=== PATIENT | male | born 1990 | race Caucasian/White ===

== ENCOUNTER 2017-11-30 11:02 | Emergency (ER) | payer BC, OTHER ==
[2017-11-30] MEDS ORDERED: NA CHLORIDE 0.9% 1,000 ML ONE (11:39)
[2017-11-30 11:50] LABS: Absolute Monocytes 0.6 K/uL (0.1-1.3); Absolute Neutrophil 6.2 K/uL (1.8-8.0); Basophils % 0.3 % (0-1.3); Eosinophils % 0.8 % (0-4.4); Hematocrit 48.8 % (39.6-49.0); MCH 29.7 pg (27.0-35.0); MCV 88.9 fL (80-100); MPV 8.5 fL (7.6-11.3); RBC Red Blood Cell Count 5.49 M/uL (4.33-5.43)
[2017-11-30 12:00] LABS: Protime INR 1.04
[2017-11-30 12:24] LABS: ALT/SGPT 32 U/L (12-78); AST/SGOT 17 U/L (15-37); Alkaline Phosphatase 81 U/L (45-117); Amylase Level 60 U/L (25-115); BUN Blood Urea Nitrogen 7 mg/dL (7-18); Bicarbonate 27 mmol/L (21-32); Bilirubin Direct 0.2 mg/dL (0-0.2); Bilirubin Total 0.4 mg/dL (0.2-1.0); Glucose Level 99 mg/dL (74-106); Lipase 127 U/L (73-393); Potassium 3.7 mmol/L (3.5-5.1); Sodium Level 140 mmol/L (136-145)
[2017-11-30] MEDS ORDERED: ONDANSETRON 4 MG/2 ML VIAL ONE (12:31)
[2017-11-30 12:58] LABS: Urine Bacteria <20 /HPF (NONE SEEN); Urine Culture Reflex Order NOT NEEDED; Urine RBC <5 /HPF (NONE SEEN)
[2017-11-30 13:14] LABS: Urine Blood NEGATIVE (NEG); Urine Glucose NEGATIVE (NEG); Urine Protein 1+ (NEG)
--- NOTE | 2017-11-30 13:47 | RAD REPORT ---
EXAM DESCRIPTION: CT - Abdomen Pelvis W Contrast - 11/30/2017 1:26 pm CLINICAL HISTORY: Abdominal pain, diarrhea, suspected rectal bleeding COMPARISON: None. TECHNIQUE: Biphasic, helical CT imaging of the abdomen and pelvis was performed following 100 ml non -ionic IV contrast. Oral contrast was given. All CT scans are performed using dose optimization technique as appropriate and may include automated exposure control or mA/KV adjustment according to patient size. FINDINGS: No suspicious findings in the lung bases. The liver, spleen, and pancreas show no suspicious findings. Gallbladder and biliary tree are also wi thout suspicious finding. Symmetric renal function is seen with no hydronephrosis or suspicious renal mass. No gastric dilatation or gastric wall thickening. No acute small bowel finding. The appendix is jeni l. Patient shows significant circumferential wall thickening of the colon from the hepatic flexure throu gh the distal descending colon. Malone of the cecum and ascending colon are mildly prominent. Rectum a nd sigmoid portions of the colon show no suspicious findings. A few small mesenteric lymph nodes are present. No free air, free fluid or pneumatosis. No significant stranding around the involved portion of col on. No mass or bulky lymphadenopathy. The urinary bladder is without significant finding. No adrenal abnormality. No suspicious bony findings. IMPRESSION: Moderately prominent colitis findings extending from the hepatic flexure through the dis neha descending colon. There is mild involvement of the cecum and ascending colon. No obstruction, free air or surgically emergent finding. Multiple small mesenteric lymph nodes are present.
[2017-11-30] MEDS ORDERED: DICYCLOMINE HCL 10 MG CAP ONE (14:08)
[2017-11-30] MEDS ORDERED: METRONIDAZOLE 500mg IVPB 500 MG/100 ML BAG IV ONE (14:09)
[2017-11-30] MEDS ORDERED: CIPROFLOXACIN 400mg IV 400 MG/200 ML BAG IV ONE (14:09)
--- NOTE | 2017-11-30 14:55 | EDPHYS ---
Physician Documentation [facility] Name: Tulio Pittman Age: 27 yrs Sex: Male : 1990 Arrival Date: 11/30/2017 Time: 11:07 Bed 15 Private MD: Felipe Weaver T ED Physician Santosh Sharpe HPI: 11/30 11:20 This 27 yrs old Male presents to ER via Ambulatory with complaints of Bloody cp Stools. 11:20 The patient presents to the emergency department with nausea, that is mild, diarrhea, cp that is continuous. Onset: The symptoms/episode began/occurred 2 day(s) ago. Possible causes: travel, returned from [facility] yesterday. 11:20 Associated signs and symptoms: Pertinent positives: abdominal pain, GI bleeding, cp noticed blood in stool last bowel movement, Pertinent negatives: constipation, fever. Severity of symptoms: in the emergency department the symptoms are unchanged despite home interventions. Historical: - Allergies: 11:13 No Known Allergies; aj - Home Meds: 11:13 None [Active]; aj - PMHx: 11:13 None; aj - PSHx: 11:13 None; aj - Immunization history:: Adult Immunizations up to date. - Social history:: Smoking status: Patient/guardian denies using tobacco. - Ebola Screening: : Patient negative for fever greater than or equal to 101.5 degrees Fahrenheit, and additional compatible Ebola Virus Disease symptoms Patient denies exposure to infectious person Patient denies travel to an Ebola-affected area in the 21 days before illness onset No symptoms or risks identified at this time. ROS: 11:25 Constitutional: Negative for body aches, chills, fever, poor PO intake. cp 11:25 Eyes: Negative for injury, pain, redness, and discharge. cp 11:25 ENT: Negative for drainage from ear(s), ear pain, sore throat, difficulty swallowing, difficulty handling secretions. 11:25 Cardiovascular: Negative for chest pain. 11:25 Respiratory: Negative for cough, shortness of breath, wheezing. 11:25 Abdomen/GI: Positive for abdominal pain, nausea, diarrhea, anorexia, rectal bleeding, Negative for vomiting, constipation. 11:25 Back: Negative for pain at rest, pain with movement. 11:25 Skin: Negative for cellulitis, rash. 11:25 Neuro: Negative for altered mental status, headache, syncope, near syncope, weakness. 11:25 All other systems are negative. Exam: 11:30 Constitutional: The patient appears in no acute distress, alert, awake, non-toxic, well cp developed, well nourished. 11:30 Head/Face: Normocephalic, atraumatic. cp 11:30 Eyes: Periorbital structures: appear normal, Conjunctiva: normal, no exudate, no injection, Sclera: no appreciated abnormality, Lids and lashes: appear normal, bilaterally. 11:30 ENT: External ear(s): are unremarkable, Nose: is normal, Mouth: Lips: moist, Oral mucosa: moist, Posterior pharynx: is normal, airway is patent, no erythema, no exudate. 11:30 Neck: ROM/movement: is normal, is supple, without pain, no range of motions limitations. 11:30 Chest/axilla: Inspection: normal, Palpation: is normal, no crepitus, no tenderness. 11:30 Cardiovascular: Rate: normal, Rhythm: regular. 11:30 Respiratory: the patient does not display signs of respiratory distress, Respirations: normal, no use of accessory muscles, no retractions, no splinting, no tachypnea, labored breathing, is not present, Breath sounds: are clear throughout, no decreased breath sounds, no stridor, no wheezing. 11:30 Abdomen/GI: Inspection: abdomen appears normal, Bowel sounds: active, all quadrants, Palpation: soft, in all quadrants, moderate abdominal tenderness, in all quadrants, rebound tenderness, is not appreciated, voluntary guarding, is elicited in all quadrants, mild, involuntary guarding, is not appreciated. 11:30 Back: CVA tenderness, is absent. 11:30 Skin: cellulitis, is not appreciated, no rash present. 11:30 Neuro: Orientation: to person, place \T\ time. Mentation: lucid, able to follow commands, Cerebellar function: is grossly normal, Motor: moves all fours, strength is normal, Sensation: no obvious gross deficits. Vital Signs: 11:13 BP 145 / 89; Pulse 84; Resp 18; Temp 98.6; Pulse Ox 98% on R/A; Weight 72.12 kg; Height aj 5 ft. 6 in. (167.64 cm); 11:19 BP 131 / 75 LA Supine (auto/reg); Pulse 52 MON; em1 11:22 BP 128 / 87 LA Sitting (auto/reg); Pulse 69 MON; em1 11:25 BP 126 / 96 LA Standing (auto/reg); Pulse 91 MON; em1 12:00 BP 129 / 80; Pulse 66; Resp 20; Pulse Ox 97% ; Pain 5/10; jb4 13:07 BP 124 / 72; Pulse 65; Resp 18; Temp 98.6(O); Pulse Ox 97% on R/A; Pain 0/10; jb4 14:30 BP 122 / 72; Pulse 56; Resp 16; Pulse Ox 96% on R/A; Pain 1/10; hj 11:13 Body Mass Index 25.66 (72.12 kg, 167.64 cm) aj MDM: 11:16 Patient medically screened. [place] 12:00 Differential diagnosis: gastritis, diverticulitis, viral gastroenteritis, cp gastroenteritis, colitis. 14:52 Data reviewed: vital signs, nurses notes, lab test result(s), radiologic studies, CT cp scan. 14:52 Response to treatment: the patient's symptoms have mildly improved after treatment, and cp as a result, I will discharge patient. 11/30 11:22 Order name: Amylase, Serum; Complete Time: 12:49 cp 11/30 11:22 Order name: Basic Metabolic Panel; Complete Time: 12:49 cp 11/30 13:04 Interpretation: Normal except: CL 108. cp 11/30 11:22 Order name: CBC with Diff; Complete Time: 12:49 cp 11/30 13:05 Interpretation: Normal except: RBC 5.49; LYM% 13.0; EARNEST% 78.9. cp 11/30 11:22 Order name: Creatinine for Radiology; Complete Time: 12:49 cp 11/30 11:22 Order name: Hepatic Function; Complete Time: 12:49 cp 11/30 11:22 Order name: Lipase; Complete Time: 12:49 cp 11/30 11:22 Order name: Urine Microscopic Only; Complete Time: 13:04 cp 11/30 11:22 Order name: PT-INR; Complete Time: 12:49 cp 11/30 11:22 Order name: Ptt, Activated; Complete Time: 12:49 cp 11/30 11:22 Order name: Stool Culture cp 11/30 11:22 Order name: Ova And Parasites cp 11/30 11:22 Order name: CDIFF 11/30 11:57 Order name: Guiac; Complete Time: 12:49 hj 11/30 13:12 Order name: Urine Dipstick--Ancillary (enter results); Complete Time: 15:00 bd 11/30 11:16 Order name: Orthostatics; Complete Time: 11:25 cp 11/30 11:22 Order name: IV Saline Lock; Complete Time: 11:42 cp 11/30 11:22 Order name: Labs collected and sent; Complete Time: 11:42 cp 11/30 11:22 Order name: Urine Dipstick-Ancillary (obtain specimen); Complete Time: 11:50 cp 11/30 11:22 Order name: CT Abd/Pelvis - W/Contrast; Complete Time: 15:00 cp 11/30 13:57 Order name: PO challenge; Complete Time: 14:03 cp Administered Medications: 11:35 Drug: NS 0.9% 1000 ml Route: IV; Rate: 1 bolus; Site: right antecubital; 12:28 Drug: Zofran 4 mg Route: IVP; Site: right antecubital; hj 14:03 Follow up: Response: No adverse reaction; Nausea is decreased 14:01 Drug: metroNIDAZOLE 500 mg Volume: 100 ml; Route: IVPB; Infused Over: 30 mins; Site: hj left jugular; 14:01 Drug: Ciprofloxacin 400 mg Volume: 200 ml; Route: IVPB; Infused Over: 60 mins; Site: hj left jugular; 14:03 Drug: Bentyl 20 mg Route: PO; Disposition: 12/01 07:06 Co-signature as Attending Physician, Santosh Sharpe MD I agree with the assessment and [place] plan of care. Disposition: 11/30/17 14:54 Discharged to Home. Impression: Colitis. - Condition is Stable. - Discharge Instructions: Colitis. - Prescriptions for Bentyl 20 mg Oral Tablet - take 2 tablets by ORAL route every 6 hours As needed; 20 tablet. Zofran 4 mg Oral Tablet - take 1 tablet by ORAL route every 12 hours As needed; 20 tablet. Cipro 500 mg Oral Tablet - take 1 tablet by ORAL route every 12 hours for 10 days; 20 tablet. Metronidazole 500 mg Oral Tablet - take 1 tablet by ORAL route every 8 hours; 30 tablet. - Medication Reconciliation Form, Thank You Letter, Antibiotic Education, Prescription Opioid Use form. - Follow up: Selena Sanches MD; When: 1 - 2 days; Reason: Recheck today's complaints. - Problem is new. - Symptoms have improved. Signatures: Dispatcher [employer] EDNegrita Medrano, RN RN Santosh Chambers MD MD cha Joaquin, Henry RN RN Santosh Collier PA PA cp Bryson, James RN RN jb4 Corrections: (The following items were deleted from the chart) 11/30 13:05 13:04 Normal except: RBC 5.49. cp cp 15:01 14:54 11/30/2017 14:54 Discharged to Home. Impression: Left sided colitis. Condition is cp Stable. Forms are Medication Reconciliation Form, Thank You Letter, Antibiotic Education, Prescription Opioid Use. Follow up: Selena Sanches; When: 1 - 2 days; Reason: Recheck today's complaints. Problem is new. Symptoms have improved. cp 15:26 15:01 11/30/2017 14:54 Discharged to Home. Impression: Colitis. Condition is Stable. jb4 Forms are Medication Reconciliation Form, Thank You Letter, Antibiotic Education, Prescription Opioid Use. Follow up: Selena Sanches; When: 1 - 2 days; Reason: Recheck today's complaints. Problem is new. Symptoms have improved. cp
--- NOTE | 2017-11-30 14:55 | ER ---
Nurse's Notes [facility] Name: Tulio Pittman Age: 27 yrs Sex: Male : 1990 Arrival Date: 11/30/2017 Time: 11:07 Bed 15 Private MD: Felipe Weaver T Diagnosis: Colitis Presentation: 11/30 11:12 Presenting complaint: Patient states: Diarrhea x 2 days with blood in last BM. Patient aj returned from [facility] yesterday. Reports 2 episodes of vomiting. Transition of care: patient was not received from another setting of care. Onset of symptoms was November 28, 2017. Risk Assessment: Do you want to hurt yourself or someone else? Patient reports no desire to harm self or others. Initial Sepsis Screen: Does the patient meet any 2 criteria? No. Patient's initial sepsis screen is negative. Does the patient have a suspected source of infection? No. Patient's initial sepsis screen is negative. Care prior to arrival: None. 11:12 Method Of Arrival: Ambulatory 11:12 Acuity: FACUNDO 3 aj Triage Assessment: 11:13 General: Appears in no apparent distress. comfortable, Behavior is calm, cooperative, aj appropriate for age. Pain: Complains of pain in umbilical area, right lower quadrant and left lower quadrant. Neuro: Level of Consciousness is awake, alert, obeys commands, Oriented to person, place, time, situation, Appropriate for age. Respiratory: Airway is patent Respiratory effort is even, unlabored, Respiratory pattern is regular, symmetrical. GI: Reports lower abdominal pain, cramping, diarrhea, nausea. Derm: Skin is intact, is healthy with good turgor, Skin is pink, warm \T\ dry. normal. Historical: - Allergies: 11:13 No Known Allergies; aj - Home Meds: 11:13 None [Active]; aj - PMHx: 11:13 None; aj - PSHx: 11:13 None; aj - Immunization history:: Adult Immunizations up to date. - Social history:: Smoking status: Patient/guardian denies using tobacco. - Ebola Screening: : Patient negative for fever greater than or equal to 101.5 degrees Fahrenheit, and additional compatible Ebola Virus Disease symptoms Patient denies exposure to infectious person Patient denies travel to an Ebola-affected area in the 21 days before illness onset No symptoms or risks identified at this time. Screenin:20 Abuse screen: Denies threats or abuse. Nutritional screening: No deficits noted. jb4 Tuberculosis screening: No symptoms or risk factors identified. Fall Risk None identified. Assessment: 11:20 General: Appears in no apparent distress. uncomfortable, Behavior is calm, cooperative, jb4 appropriate for age. Pain: Complains of pain in epigastric area and suprapubic area Pain does not radiate. Pain currently is 5 out of 10 on a pain scale. Quality of pain is described as dull, stabbing, Pain began 1 day ago. Is continuous. Neuro: Level of Consciousness is awake, alert, obeys commands, Oriented to person, place, time, situation. Cardiovascular: Heart tones S1 S2 present Patient's skin is warm and dry. Respiratory: Airway is patent Respiratory effort is even, unlabored, Respiratory pattern is regular, symmetrical, Breath sounds are clear bilaterally. GI: Abdomen is flat, Stools are reported to be diarrhea. Bowel sounds present X 4 quads. Abdomen is tender to palpation in epigastric area and suprapubic area Reports diarrhea. : No signs and/or symptoms were reported regarding the genitourinary system. EENT: No signs and/or symptoms were reported regarding the EENT system. Derm: Skin is pink, warm \T\ dry. Musculoskeletal: No signs and/or symptoms reported regarding the musculoskeletal system. 12:13 Reassessment: Patient and/or family updated on plan of care and expected duration. Pain jb4 level reassessed. Patient is alert, oriented x 3, equal unlabored respirations, skin warm/dry/pink. Pt finished oral contrast 1213. Radiology informed of completion. 13:10 Reassessment: Patient and/or family updated on plan of care and expected duration. Pain jb4 level reassessed. Patient is alert, oriented x 3, equal unlabored respirations, skin warm/dry/pink. Pt denies nausea, reports having no pain. Being taken to CT. Patient states feeling better. 13:52 Reassessment: Patient and/or family updated on plan of care and expected duration. Pain jb4 level reassessed. Patient is alert, oriented x 3, equal unlabored respirations, skin warm/dry/pink. Pt returned from CT, now resting in bed with guest at the bedside. 14:57 Reassessment: Patient and/or family updated on plan of care and expected duration. Pain hj level reassessed. Patient is alert, oriented x 3, equal unlabored respirations, skin warm/dry/pink. Pt reports feeling better and a decrease in pain after taking bentyl. Patient states feeling better. Vital Signs: 11:13 BP 145 / 89; Pulse 84; Resp 18; Temp 98.6; Pulse Ox 98% on R/A; Weight 72.12 kg; Height aj 5 ft. 6 in. (167.64 cm); 11:19 BP 131 / 75 LA Supine (auto/reg); Pulse 52 MON; em1 11:22 BP 128 / 87 LA Sitting (auto/reg); Pulse 69 MON; em1 11:25 BP 126 / 96 LA Standing (auto/reg); Pulse 91 MON; em1 12:00 BP 129 / 80; Pulse 66; Resp 20; Pulse Ox 97% ; Pain 5/10; jb4 13:07 BP 124 / 72; Pulse 65; Resp 18; Temp 98.6(O); Pulse Ox 97% on R/A; Pain 0/10; jb4 14:30 BP 122 / 72; Pulse 56; Resp 16; Pulse Ox 96% on R/A; Pain 1/10; hj 11:13 Body Mass Index 25.66 (72.12 kg, 167.64 cm) ED Course: 11:07 Patient arrived in ED. mr 11:08 Felipe Weaver MD is Private Physician. mr 11:13 Triage completed. aj 11:13 Arm band placed on right wrist. Patient placed in an exam room. aj 11:16 Santosh Sharpe MD is Attending Physician. [facility] 11:16 [facility] Armenta [facility]. cp 11:20 Patient has correct armband on for positive identification. Bed in low position. Call jb4 light in reach. Side rails up X 1. barber instructor on. Pulse ox on. 11:21 Judah Chapin, NABIL is Primary Nurse. hj 11:41 Initial lab(s) drawn, by me, sent to lab. Inserted saline lock: in right antecubital jb4 area, using aseptic technique. Blood collected. 11:42 Urine collected: clean catch specimen, clear, Stool sample collected. jb4 11:51 CDIFF Sent. hj 11:51 Ova And Parasites Sent. hj 11:51 Stool Culture Sent. hj 12:04 Guiac Sent. hj 13:[address] via wheelchair. sj 13:22 CT completed. Patient tolerated procedure well. Patient moved back from CT. 13:26 CT Abd/Pelvis - W/Contrast In Process Unspecified. EDMS 14:54 Selena Sanches MD is Referral Physician. cp 15:24 No provider procedures requiring assistance completed. IV discontinued, intact, jb4 bleeding controlled. Administered Medications: 11:35 Drug: NS 0.9% 1000 ml Route: IV; Rate: 1 bolus; Site: right antecubital; hj 12:28 Drug: Zofran 4 mg Route: IVP; Site: right antecubital; hj 14:03 Follow up: Response: No adverse reaction; Nausea is decreased hj 14:01 Drug: metroNIDAZOLE 500 mg Volume: 100 ml; Route: IVPB; Infused Over: 30 mins; Site: hj left jugular; 14:01 Drug: Ciprofloxacin 400 mg Volume: 200 ml; Route: IVPB; Infused Over: 60 mins; Site: hj left jugular; 14:03 Drug: Bentyl 20 mg Route: PO; Outcome: 14:54 Discharge ordered by MD. cp 15:24 Discharged to home ambulatory. jb4 15:24 Condition: stable 15:24 Discharge instructions given to patient, Instructed on discharge instructions, follow up and referral plans. medication usage, Demonstrated understanding of instructions, follow-up care, medications, Prescriptions given X 4. 15:26 Patient left the ED. jb4 Signatures: Dispatcher [employer] EDNegrita Medrano RN RN aj Anderson, Corey, MD MD cha Rivera, Maria mr Alicia Aguirre Eric Keshia Morelos Judah Chapin RN RN hj Page, Corey, PA PA cp Bryson, James, RN RN jb4 Corrections: (The following items were deleted from the chart) 15:24 15:23 Abuse screen: jb4 jb4
[2017-11-30 15:30] VITALS: TEMP 98.6
[2017-11-30 15:36] VITALS: BP 122/72; O2SAT 96
== END 2017-11-30 15:26 | disposition home or self-care (01) ==
LOC: ER 11:02
DX: K52.9 Noninfective gastroenteritis and colitis, unspecified (principal)
CPT/HCPCS: 36415; 74177; 80048; 80076; 81003; 81015; 82150; 82272; 83690; 85025; 85610; 85730; 87045; 87046; 87177; 87209; 87493; 99285; J0744; J2405; J7030; Q9967

== ENCOUNTER 2020-08-04 08:38 | Emergency (ER) | payer BC ==
--- NOTE | 2020-08-04 10:40 | ER ---
Nurse's Notes [facility] Name: Tulio Pittman Age: 30 yrs Sex: Male : 1990 Arrival Date: 08/04/2020 Time: 08:42 Bed 5 Private MD: Diagnosis: Acute upper respiratory infection, unspecified;Coronavirus infection, unspecified Presentation: 08/04 08:50 Chief complaint: Patient states: "I started on Wednesday with a slight cough and Wednesday aa5 I had fever and diarrhea". Pt denies pain. 08:50 Onset of symptoms was 2020. aa5 08:50 Acuity: FACUNDO 4 aa5 08:50 Method Of Arrival: Ambulatory aa5 08:50 Coronavirus screen: Client presents with at least one sign or symptom that may indicate aa5 coronavirus-19. Standard/surgical mask placed on the client. Provider contacted for isolation considerations. Ebola Screen: Patient negative for fever greater than or equal to 101.5 degrees Fahrenheit, and additional compatible Ebola Virus Disease symptoms. Initial Sepsis Screen: Does the patient meet any 2 criteria? No. Patient's initial sepsis screen is negative. Does the patient have a suspected source of infection? No. Patient's initial sepsis screen is negative. Risk Assessment: Do you want to hurt yourself or someone else? Patient reports no desire to harm self or others. Triage Assessment: 09:00 General: Appears distressed, uncomfortable, ill, Behavior is cooperative, appropriate bp for age, anxious. Pain: Denies pain. EENT: No deficits noted. Neuro: No deficits noted. Cardiovascular: No deficits noted. Respiratory: Reports cough that is. GI: Reports diarrhea, nausea. : No signs and/or symptoms were reported regarding the genitourinary system. Derm: No deficits noted. Musculoskeletal: No deficits noted. Historical: - Allergies: 09:02 No Known Allergies; aa5 - PMHx: 09:02 None; aa5 - Immunization history:: Adult Immunizations unknown. - Social history:: Smoking status: Patient denies any tobacco usage or history of. Patient/guardian denies using alcohol, street drugs, The patient lives with family. - Family history:: not pertinent. Screenin:06 Abuse screen: Denies threats or abuse. Denies injuries from another. Nutritional bp screening: No deficits noted. Tuberculosis screening: No symptoms or risk factors identified. Fall Risk None identified. Assessment: 09:00 General: SEE TRIAGE NOTE. bp 09:39 Reassessment: Patient appears in no apparent distress at this time. No changes from bp previously documented assessment. Patient and/or family updated on plan of care and expected duration. Pain level reassessed. Patient is alert, oriented x 3, equal unlabored respirations, skin warm/dry/pink. 11:05 Reassessment: Patient is alert, oriented x 3, equal unlabored respirations, skin aa5 warm/dry/pink. Vital Signs: 08:50 BP 146 / 93; Pulse 68; Resp 16 S; Temp 98.9(O); Pulse Ox 98% on R/A; Weight 72.57 kg aa5 (R); Height 5 ft. 6 in. (167.64 cm) (R); Pain 0/10; 09:38 BP 147 / 99; Pulse 76; Resp 16; Pulse Ox 98% ; bp 08:50 Body Mass Index 25.82 (72.57 kg, 167.64 cm) aa5 ED Course: 08:42 Patient arrived in ED. ds1 08:50 Arm band placed on. aa5 08:55 Bolivar Hinojosa MD is Attending Physician. ma2 08:55 Rolando Diaz, RN is Primary Nurse. bp 09:01 Triage completed. aa5 09:06 Patient has correct armband on for positive identification. Bed in low position. Call bp light in reach. Side rails up X2. 11:05 No provider procedures requiring assistance completed. Patient did not have IV access aa5 during this emergency room visit. Administered Medications: No medications were administered Outcome: 10:39 Discharge ordered by . clotilde 11:05 Discharged to home ambulatory. aa5 11:05 Condition: stable 11:05 Discharge instructions given to patient, Instructed on discharge instructions, follow up and referral plans. medication usage, Demonstrated understanding of instructions, follow-up care, medications, Prescriptions given X 4. 11:05 Patient left the ED. aa5 Signatures: Maira Mendoza ds1 Esthela Portillo RN RN aa5 Rolando Diaz RN RN bp Bolivar Hinojosa MD MD ma2
--- NOTE | 2020-08-04 10:40 | EDPHYS ---
Physician Documentation [facility] Name: Tulio Pittman Age: 30 yrs Sex: Male : 1990 Arrival Date: 08/04/2020 Time: 08:42 Bed 5 Private MD: ED Physician Bolivar Hinojosa HPI: 08/04 09:27 This 30 yrs old Male presents to ER via Ambulatory with complaints of Fever, ma2 Cough, Diarrhea. 09:27 The patient reports fever, not measured (subjective). Onset: The symptoms/episode ma2 began/occurred gradually, 1 day(s) ago. Associated signs and symptoms: Pertinent negatives: altered mental status, backache, chest pain, chills. Severity of symptoms: At their worst the symptoms were very mild in the emergency department the symptoms are unchanged. Historical: - Allergies: 09:02 No Known Allergies; aa5 - PMHx: 09:02 None; aa5 - Immunization history:: Adult Immunizations unknown. - Social history:: Smoking status: Patient denies any tobacco usage or history of. Patient/guardian denies using alcohol, street drugs, The patient lives with family. - Family history:: not pertinent. ROS: 09:27 Constitutional: Negative for fever, chills, and weight loss. ma2 09:27 All other systems are negative. Exam: 09:27 Constitutional: This is a well developed, well nourished patient who is awake, alert, ma2 and in no acute distress. ENT: Nares patent. No nasal discharge, no septal abnormalities noted. Tympanic membranes are normal and external auditory canals are clear. Oropharynx with no redness, swelling, or masses, exudates, or evidence of obstruction, uvula midline. Mucous membranes moist. Neck: Trachea midline, no thyromegaly or masses palpated, and no cervical lymphadenopathy. Supple, full range of motion without nuchal rigidity, or vertebral point tenderness. No Meningismus. Chest/axilla: Normal chest wall appearance and motion. Nontender with no deformity. No lesions are appreciated. Cardiovascular: Regular rate and rhythm with a normal S1 and S2. No gallops, murmurs, or rubs. Normal PMI, no JVD. No pulse deficits. Respiratory: Lungs have equal breath sounds bilaterally, clear to auscultation and percussion. No rales, rhonchi or wheezes noted. No increased work of breathing, no retractions or nasal flaring. Abdomen/GI: Soft, non-tender, with normal bowel sounds. No distension or tympany. No guarding or rebound. No evidence of tenderness throughout. Vital Signs: 08:50 BP 146 / 93; Pulse 68; Resp 16 S; Temp 98.9(O); Pulse Ox 98% on R/A; Weight 72.57 kg aa5 (R); Height 5 ft. 6 in. (167.64 cm) (R); Pain 0/10; 09:38 BP 147 / 99; Pulse 76; Resp 16; Pulse Ox 98% ; bp 08:50 Body Mass Index 25.82 (72.57 kg, 167.64 cm) aa5 MDM: 08:55 Patient medically screened. [facility] 09:27 Differential diagnosis: viral Infection, URI, gastroenteritis, meningitis. [facility] 10:39 Data reviewed: vital signs, nurses notes. Counseling: I had a detailed discussion with ma the patient and/or guardian regarding: the historical points, exam findings, and any diagnostic results supporting the discharge/admit diagnosis, the presence of at least one elevated blood pressure reading (>120/80) during this emergency department visit, the need for outpatient follow up. Response to treatment: the patient's symptoms have markedly improved after treatment. 08/04 10:37 Order name: SARS-COV-2 RT PCR EDMS Administered Medications: No medications were administered Disposition: 08/04/20 10:39 Discharged to Home. Impression: Acute upper respiratory infection, unspecified, Coronavirus infection, unspecified. - Condition is Stable. - Discharge Instructions: Upper Respiratory Infection, Adult, COVID-19. - Prescriptions for Diclofenac Sodium 75 mg Oral Tablet Sustained Release - take 1 tablet by ORAL route 2 times per day; 30 tablet. Zithromax Z- Wayne 250 mg Oral Tablet - take 1 tablet by ORAL route as directed for 5 days Day 1 - take two (2) tablets one time. Day 2, 3, 4 , 5 take one (1) tablet once daily.; 6 tablet. Medrol (Wayne) 4 mg Oral Tablets, Dose Pack - take 1 tablet by ORAL route as directed - follow package instructions; 1 packet. Albuterol Sulfate 90 mcg/actuation - inhale 1-2 puff by INHALATION route every 4-6 hours; 1 Inhaler. - Medication Reconciliation Form, Thank You Letter, Antibiotic Education, Prescription Opioid Use form. - Follow up: Private Physician; When: 24 Hours; Reason: Continuance of care. Signatures: Dispatcher [employer] [facility] Esthela Portillo RN RN aa5 Bolivar Hinojosa MD MD ma2 Corrections: (The following items were deleted from the chart) 09:56 09:01 CORONAVIRUS+.BRZ ordered. [facility] 10:40 10:39 08/04/2020 10:39 Discharged to Home. Impression: Acute upper respiratory ma2 infection, unspecified. Condition is Stable. Discharge Instructions: Upper Respiratory Infection, Adult. Prescriptions for Diclofenac Sodium 75 mg Oral Tablet Sustained Release - take 1 tablet by ORAL route 2 times per day; 30 tablet, Zithromax Z-Wayne 250 mg Oral Tablet - take 1 tablet by ORAL route as directed for 5 days Day 1 - take two (2) tablets one time. Day 2, 3, 4 , 5 take one (1) tablet once daily.; 6 tablet, Medrol (Wayne) 4 mg Oral Tablets, Dose Pack - take 1 tablet by ORAL route as directed - follow package instructions; 1 packet, Albuterol Sulfate 90 mcg/actuation - inhale 1-2 puff by INHALATION route every 4-6 hours; 1 Inhaler. and Forms are Medication Reconciliation Form, Thank You Letter, Antibiotic Education, Prescription Opioid Use. Follow up: Private Physician; When: 24 Hours; Reason: Continuance of care. ma2 11:05 10:40 08/04/2020 10:39 Discharged to Home. Impression: Acute upper respiratory aa5 infection, unspecified; Coronavirus infection, unspecified. Condition is Stable. Discharge Instructions: Upper Respiratory Infection, Adult, COVID-19. Prescriptions for Diclofenac Sodium 75 mg Oral Tablet Sustained Release - take 1 tablet by ORAL route 2 times per day; 30 tablet, Zithromax Z-Wayne 250 mg Oral Tablet - take 1 tablet by ORAL route as directed for 5 days Day 1 - take two (2) tablets one time. Day 2, 3, 4 , 5 take one (1) tablet once daily.; 6 tablet, Medrol (Wayne) 4 mg Oral Tablets, Dose Pack - take 1 tablet by ORAL route as directed - follow package instructions; 1 packet, Albuterol Sulfate 90 mcg/actuation - inhale 1-2 puff by INHALATION route every 4-6 hours; 1 Inhaler. and Forms are Medication Reconciliation Form, Thank You Letter, Antibiotic Education, Prescription Opioid Use. Follow up: Private Physician; When: 24 Hours; Reason: Continuance of care. ma2
== END 2020-08-04 11:05 | disposition home or self-care (01) ==
LOC: ER 08:38
DX: U07.1 COVID-19 (principal); J06.9 Acute upper respiratory infection, unspecified
CPT/HCPCS: 99282; U0003

== ENCOUNTER 2020-08-07 02:06 | Emergency (ER) | payer BC ==
--- NOTE | 2020-08-07 04:29 | ER ---
Nurse's Notes [facility] Name: Tulio Pittman Age: 30 yrs Sex: Male : 1990 Arrival Date: 08/07/2020 Time: 02:08 Bed 19 Private MD: Diagnosis: Dyspnea;Fever, unspecified;Other viral pneumonia-COVID 19 POSITIVE Presentation: 08/07 02:35 Chief complaint: Patient states: he was diagnosed with COVID last Wednesday and sent home bb but tonight his fever got up to 103 he has been running for exercise and now he feels like he is more congested. Coronavirus screen: Client presents with at least one sign or symptom that may indicate coronavirus-19. Standard/surgical mask placed on the client. Client reports previous positive COVID test result. Ebola Screen: No symptoms or risks identified at this time. Initial Sepsis Screen: Does the patient meet any 2 criteria? No. Patient's initial sepsis screen is negative. Does the patient have a suspected source of infection? Yes: Other: COVID positive. Risk Assessment: Do you want to hurt yourself or someone else? Patient reports no desire to harm self or others. Onset of symptoms was August 06, 2020. 02:35 Method Of Arrival: Ambulatory bb 02:35 Acuity: FACUNDO 3 bb Triage Assessment: 02:38 General: Appears in no apparent distress. Behavior is calm, cooperative. Pain: Denies bb pain. Neuro: Level of Consciousness is awake, alert, obeys commands, Oriented to person, place, time, situation. Cardiovascular: Capillary refill < 3 seconds Patient's skin is warm and dry. Respiratory: Reports shortness of breath Respiratory effort is even, unlabored, Respiratory pattern is regular. GI: No signs and/or symptoms were reported involving the gastrointestinal system. Derm: Skin is pink, warm \T\ dry. Musculoskeletal: Circulation, motion, and sensation intact. Historical: - Allergies: 02:38 No Known Allergies; bb - Home Meds: 04:30 albuterol sulfate 90 mcg/actuation Inhl HFAA 2 puffs every 4-6 hours [Active]; sf diclofenac sodium 75 mg oral TbEC 1 tab 2 times per day [Active]; methylprednisolone 4 mg Oral DsPk [Active]; Zithromax Z-Wayne 250 mg Oral tab [Active]; - PMHx: 02:38 COVID positive; crimped esophagus; bb - PSHx: 02:38 right knee; bb - Immunization history:: Adult Immunizations up to date. - Social history:: Smoking status: Patient denies any tobacco usage or history of. Screenin:52 Abuse screen: Denies threats or abuse. Denies injuries from another. Nutritional sf screening: No deficits noted. Tuberculosis screening: No symptoms or risk factors identified. Never had TB. Possible symptoms: None Risk factors: None. Fall Risk None identified. No fall in past 12 months (0 pts). No secondary diagnosis (0 pts). No IV (0 pts). Ambulatory Aid- None/Bed Rest/Nurse Assist (0 pts). Gait- Normal/Bed Rest/Wheelchair (0 pts) Mental Status- Oriented to own ability (0 pts). Total Taylor Fall Scale indicates No Risk (0-24 pts). Assessment: 03:52 General: Appears in no apparent distress. comfortable, Behavior is calm, cooperative, sf appropriate for age. Pain: Denies pain. Neuro: No deficits noted. Level of Consciousness is awake, alert, Oriented to person, place, time, situation. Cardiovascular: Reports shortness of breath, Denies chest pain, lightheadedness, palpitations, Capillary refill < 3 seconds Patient's skin is warm and dry. Respiratory: Reports shortness of breath cough that is Airway is patent Respiratory effort is even, unlabored, Respiratory pattern is regular, symmetrical, the patient has mild shortness of breath. GI: No deficits noted. No signs and/or symptoms were reported involving the gastrointestinal system. : No deficits noted. No signs and/or symptoms were reported regarding the genitourinary system. Derm: No deficits noted. No signs and/or symptoms reported regarding the dermatologic system. Musculoskeletal: No deficits noted. No signs and/or symptoms reported regarding the musculoskeletal system. Vital Signs: 02:35 BP 156 / 86; Pulse 106; Resp 16 S; Temp 99.5(O); Pulse Ox 96% on R/A; Weight 72.57 kg bb (R); Height 5 ft. 6 in. (167.64 cm) (R); Pain 0/10; 03:51 BP 134 / 81; Pulse 93; Resp 18; Temp 98.5(O); Pulse Ox 93% ; sf 04:00 BP 122 / 83; Pulse 82; Resp 18; Pulse Ox 94% ; sf 04:30 BP 117 / 78; Pulse 103; Resp 18; Pulse Ox 96% ; sf 02:35 Body Mass Index 25.82 (72.57 kg, 167.64 cm) bb ED Course: 02:08 Patient arrived in ED. am4 02:37 Triage completed. bb 02:38 Arm band placed on Patient placed in waiting room, Patient notified of wait time. bb 03:51 Wilmar Velazquez, NABIL is Primary Nurse. sf 03:52 Patient has correct armband on for positive identification. Placed in gown. Bed in low sf position. Call light in reach. Side rails up X 1. Pulse ox on. NIBP on. Door closed. Noise minimized. Visitors limited. Lights dimmed. Verbal reassurance given. 03:52 Patient maintains SpO2 saturation greater than 95% on room air. sf 04:14 Santosh Sharpe MD is Attending Physician. [place] 04:24 Tacho Donovan MD is Referral Physician. [place] 04:27 Chest Single View XRAY Sent. sf 04:28 X-ray(s) taken. sf 04:36 Chest Single View XRAY In Process Unspecified. EDMS 04:41 No provider procedures requiring assistance completed. Patient did not have IV access sf during this emergency room visit. Administered Medications: 04:22 Drug: Tylenol 1000 mg Route: PO; sf 04:35 Follow up: Response: No adverse reaction sf 04:22 Drug: Pepcid (famotidine) 20 mg Route: PO; sf 04:35 Follow up: Response: No adverse reaction sf 04:23 Drug: Decadron (dexamethasone) 10 mg Route: IM; Site: left ventrogluteal; sf 04:35 Follow up: Response: No adverse reaction sf 04:35 Drug: Aspirin Chewable Tablet 162 mg Route: PO; sf 04:40 Follow up: Response: Medication administered at discharge. sf Outcome: 04:28 Discharge ordered by . [place] 04:41 Discharged to home ambulatory. sf 04:41 Condition: stable 04:41 Discharge instructions given to patient, Instructed on discharge instructions, follow up and referral plans. medication usage, Demonstrated understanding of instructions, follow-up care, medications, Prescriptions given X 2. 04:42 Patient left the ED. sf Signatures: Dispatcher [employer] EDMS Dell Santosh, MD MD carrillo Parsons, Stephany, RN RN Princess Carmona Steven, RN RN sf Corrections: (The following items were deleted from the chart) 04:30 02:38 Home Meds: None; lorenza andrews
--- NOTE | 2020-08-07 04:29 | EDPHYS ---
Physician Documentation [facility] Name: Tulio Pittman Age: 30 yrs Sex: Male : 1990 Arrival Date: 08/07/2020 Time: 02:08 Bed 19 Private MD: MARLYN Physician Santosh Sharpe HPI: 08/07 04:19 This 30 yrs old Male presents to ER via Ambulatory with complaints of Chest carr[place] Tightness, Cough, COVID +. 04:19 The patient or guardian reports chest pain that is located primarily in the anterior carrillo chest wall, bilaterally. The pain does not radiate. Historical: - Allergies: 02:38 No Known Allergies; bb - Home Meds: 04:30 albuterol sulfate 90 mcg/actuation Inhl HFAA 2 puffs every 4-6 hours [Active]; sf diclofenac sodium 75 mg oral TbEC 1 tab 2 times per day [Active]; methylprednisolone 4 mg Oral DsPk [Active]; Zithromax Z-Wayne 250 mg Oral tab [Active]; - PMHx: 02:38 COVID positive; crimped esophagus; bb - PSHx: 02:38 right knee; bb - Immunization history:: Adult Immunizations up to date. - Social history:: Smoking status: Patient denies any tobacco usage or history of. ROS: 04:19 Constitutional: Negative for fever, chills, and weight loss, Eyes: Negative for injury, carrillo pain, redness, and discharge, ENT: Negative for injury, pain, and discharge, Neck: Negative for injury, pain, and swelling, Cardiovascular: Negative for chest pain, palpitations, and edema, Abdomen/GI: Negative for abdominal pain, nausea, vomiting, diarrhea, and constipation, Back: Negative for injury and pain, : Negative for injury, bleeding, discharge, and swelling, MS/Extremity: Negative for injury and deformity, Skin: Negative for injury, rash, and discoloration, Neuro: Negative for headache, weakness, numbness, tingling, and seizure, Psych: Negative for depression, anxiety, suicide ideation, homicidal ideation, and hallucinations, Allergy/Immunology: Negative for hives, rash, and allergies, Endocrine: Negative for neck swelling, polydipsia, polyuria, polyphagia, and marked weight changes, Hematologic/Lymphatic: Negative for swollen nodes, abnormal bleeding, and unusual bruising. 04:19 Respiratory: Positive for cough, "sounds productive", shortness of breath, at rest. Exam: 04:20 Constitutional: This is a well developed, well nourished patient who is awake, alert, carr[place] and in no acute distress. Head/Face: Normocephalic, atraumatic. Eyes: Pupils equal round and reactive to light, extra-ocular motions intact. Lids and lashes normal. Conjunctiva and sclera are non-icteric and not injected. Cornea within normal limits. Periorbital areas with no swelling, redness, or edema. ENT: Nares patent. No nasal discharge, no septal abnormalities noted. Tympanic membranes are normal and external auditory canals are clear. Oropharynx with no redness, swelling, or masses, exudates, or evidence of obstruction, uvula midline. Mucous membranes moist. Neck: Trachea midline, no thyromegaly or masses palpated, and no cervical lymphadenopathy. Supple, full range of motion without nuchal rigidity, or vertebral point tenderness. No Meningismus. Chest/axilla: Normal chest wall appearance and motion. Nontender with no deformity. No lesions are appreciated. Cardiovascular: Regular rate and rhythm with a normal S1 and S2. No gallops, murmurs, or rubs. Normal PMI, no JVD. No pulse deficits. Abdomen/GI: Soft, non-tender, with normal bowel sounds. No distension or tympany. No guarding or rebound. No evidence of tenderness throughout. Back: No spinal tenderness. No costovertebral tenderness. Full range of motion. Male : Normal genitalia with no discharge or lesions. Skin: Warm, dry with normal turgor. Normal color with no rashes, no lesions, and no evidence of cellulitis. MS/ Extremity: Pulses equal, no cyanosis. Neurovascular intact. Full, normal range of motion. Neuro: Awake and alert, GCS 15, oriented to person, place, time, and situation. Cranial nerves II-XII grossly intact. Motor strength 5/5 in all extremities. Sensory grossly intact. Cerebellar exam normal. Normal gait. Psych: Awake, alert, with orientation to person, place and time. Behavior, mood, and affect are within normal limits. 04:20 Respiratory: the patient does not display signs of respiratory distress, Respirations: normal, Breath sounds: are clear throughout, no decreased breath sounds, no rales, rhonchi, no stridor, no wheezing, Respiratory rate: 18 04:20 Musculoskeletal/extremity: DVT Exam: No signs of deep vein thrombosis. no pain, no swelling, no tenderness, negative Homans' sign noted on exam, no appreciated bluish discoloration, no erythema, no increased warmth. Vital Signs: 02:35 BP 156 / 86; Pulse 106; Resp 16 S; Temp 99.5(O); Pulse Ox 96% on R/A; Weight 72.57 kg bb (R); Height 5 ft. 6 in. (167.64 cm) (R); Pain 0/10; 03:51 BP 134 / 81; Pulse 93; Resp 18; Temp 98.5(O); Pulse Ox 93% ; sf 04:00 BP 122 / 83; Pulse 82; Resp 18; Pulse Ox 94% ; sf 04:30 BP 117 / 78; Pulse 103; Resp 18; Pulse Ox 96% ; sf 02:35 Body Mass Index 25.82 (72.57 kg, 167.64 cm) bb MDM: 04:14 Patient medically screened. [place] 04:22 Differential diagnosis: costochondritis, pneumonia, pneumothorax, pulmonary embolus. [place] HEART Score: History: Slightly Suspicious (0), Age: < or = 45 years (0), Risk Factors: No Risk Factors Known (0), Troponin:. Differential Diagnosis: Bronchitis Upper Respiratory Infection Viral Syndrome Pneumonia. The patient's deep vein thrombosis risk score was calculated as follows: Total Score: 0. This patient was found to be at low risk for a deep vein thrombosis by using the Well's assessment criteria. The patient's pulmonary embolism risk score was calculated as follows: Total Score: 0-2 points. This patient was found to be at low risk for a pulmonary embolism by using the Well's assessment criteria. CLEMENT Risk Score: TOTAL SCORE = 0. Data reviewed: vital signs, nurses notes, radiologic studies. Data interpreted: Pulse oximetry: on room air is 93 %. Test interpretation: by ED physician or midlevel provider: plain radiologic studies. Counseling: I had a detailed discussion with the patient and/or guardian regarding: the historical points, exam findings, and any diagnostic results supporting the discharge/admit diagnosis, lab results, radiology results, the need for outpatient follow up, for definitive care, a family practitioner, a project facilitator. 08/07 04:19 Order name: Chest Single View XRAY [facility] 08/07 04:19 Order name: PO challenge; Complete Time: 04:20 [facility] Administered Medications: 04:22 Drug: Tylenol 1000 mg Route: PO; sf 04:35 Follow up: Response: No adverse reaction sf 04:22 Drug: Pepcid (famotidine) 20 mg Route: PO; sf 04:35 Follow up: Response: No adverse reaction sf 04:23 Drug: Decadron (dexamethasone) 10 mg Route: IM; Site: left ventrogluteal; sf 04:35 Follow up: Response: No adverse reaction sf 04:35 Drug: Aspirin Chewable Tablet 162 mg Route: PO; sf 04:40 Follow up: Response: Medication administered at discharge. sf Disposition: 08/07/20 04:28 Discharged to Home. Impression: Dyspnea, Fever, unspecified, Other viral pneumonia - COVID 19 POSITIVE. - Condition is Stable. - Discharge Instructions: Fever, Adult, Aspirin and Your Heart, Fever, Adult, [id number], COVID-19. - Prescriptions for dexamethasone 2 mg Oral tablet - take 1 tablet by ORAL route 2 times per day; 10 tablet. Pepcid 20 mg Oral Tablet - take 1 tablet by ORAL route every 12 hours for 10 days; 20 tablet. - Medication Reconciliation Form, Thank You Letter, Antibiotic Education, Prescription Opioid Use form. - Follow up: Private Physician; When: 2 - 3 days; Reason: Recheck today's complaints, Continuance of care, Re-evaluation by your physician. Follow up: Tacho Donovan MD; When: 2 - 3 days; Reason: Recheck today's complaints, Re-evaluation by your physician. - Problem is new. - Symptoms have improved. Signatures: Dispatcher [employer] Santosh Tripp MD MD cha Ballard, Brenda, NABIL RN Wilmar Crocker RN RN sf Corrections: (The following items were deleted from the chart) 04:30 02:38 Home Meds: None; bb sf 04:42 04:28 08/07/2020 04:28 Discharged to Home. Impression: Dyspnea; Fever, unspecified; sf Other viral pneumonia - COVID 19 POSITIVE. Condition is Stable. Forms are Medication Reconciliation Form, Thank You Letter, Antibiotic Education, Prescription Opioid Use. Follow up: Private Physician; When: 2 - 3 days; Reason: Recheck today's complaints, Continuance of care, Re-evaluation by your physician. Follow up: Tacho Donovan; When: 2 - 3 days; Reason: Recheck today's complaints, Re-evaluation by your physician. Problem is new. Symptoms have improved. [place]
[2020-08-07] MEDS ORDERED: dexAMETHasone 10 MG/ML VIAL ONE (04:39)
[2020-08-07] MEDS ORDERED: ACETAMINOPHEN 500 MG TAB ONE (04:39)
[2020-08-07] MEDS ORDERED: FAMOTIDINE 20 MG TAB ONE (04:40)
[2020-08-07] MEDS ORDERED: ASPIRIN 81 MG CHEWABLE TABLET ONE (04:54)
[2020-08-07 04:56] VITALS: TEMP 98.5
[2020-08-07 04:59] VITALS: BP 117/78; O2SAT 96
--- NOTE | 2020-08-07 07:55 | RAD REPORT ---
EXAM DESCRIPTION: [place] Single View08/07/2020 4:36 am CLINICAL HISTORY: Cough COMPARISON: none FINDINGS: The lungs appear clear of acute infiltrate. The heart is normal size IMPRESSION: No acute abnormalities displayed
== END 2020-08-07 04:42 | disposition home or self-care (01) ==
LOC: ER 02:06
DX: U07.1 COVID-19 (principal); J12.82 Pneumonia due to coronavirus disease 2019; R50.9 Fever, unspecified
CPT/HCPCS: 71045; J1100; 96372; 99284

== ENCOUNTER 2023-12-12 16:15 | Emergency (ER) | payer BC ==
--- OUTSIDE RECORDS SUMMARY | 2023-12-12 16:18 | XMS REPORT | Continuity of Care Document ---
Author Name Unknown Address [address] [facility] [address] [place] [address] [facility] Address [address] [facility] [place] [address] Care Team Providers Care Photogrammetrist Name Role Phone DENISHA MALDONADO Primary Care Physician Unava ilBAY Montejo Attending Clinician UnavailBAY Streeter Attending Clinician UnavailBay Streeter MD Attending Clinician [phone] Bay Chicas MD Attending Clinician [phone] IOANA CHERRY Attending Clinician UnavailIoana Graff Attending Clinician ASHUTOSH KULKARNI Attending Clinician Unavailable Ashutosh Kulkarni MD Attending Clinician [phone] Unknown, Attending Attending Clinician Unavailab carmen Doctor Unassigned, [place] Attending Clinician U Lori Martin Attending Clinician [phone] LORI FERRIS Attending Clinician Unavailconcetta katz Payers Payer Name Policy Type Policy Number Effective Date Expirati on Date Source Problems Condition Name Condition Details Condition Category Status Onset Date Resolution Date Last Treatment Date Treating Clinician Comments Source No known active problems No known active problems Disease [facility] Allergies, Adverse Reactions, Alerts Allergy Name Allergy Type Status Severity Reaction(s) Onset Date Inactive Date Treating Clinician Comments Source NO KNOWN ALLERGIE S Drug Class Active [facility] Social History Social Habit Start Date Stop Date Quantity Comments Source Exposure to SARS-CoV-2 (event) Not sure [facility] Sexual orientation U [facility] History of Social function 2023-12-01 00:00:00 2023-12-01 00:00:00 [facility] Tobacco use and exposure 2021-03-03 00:00:00 2021-03-03 00:00:00 Smokeless tobacco non-user [facility] Sex assigned at 1990 00:00:00 1990 00:00:00 [facility] Smoking Status Start Date Stop Date Source Unknown if ever smoked [facility] Never smoked tobacco [facility] Medications Ordered Medication Name Filled Medication Name Start Date Stop Date Current Medication? Ordering Clinician Indication Dosage Frequency Signature (SIG) Comments Components Source diclofenac 75 mg EC tablet 11-30 00:00: 00 Yes [id number] 75mg Take 1 tablet by mouth in the morning and 1 tablet in the evening. Take with meals. [facility] ibuprofen (IBU) tablet 600 mg 10-28 01:00: 00 10-28 00:08 :53 No [id number] 600mg [facility] ibuprofen (ADVIL CHILDREN'S) 100 mg/5 mL oral suspension 600 mg 10-28 01:00: 00 10-28 00:13 :00 No [id number] 600mg 600 mg, Oral, ONCE, 1 dose, On Wed10/28/23 at 1999, Routine [facility] prednisoLON E 15 mg/5 mL solution 10-27 00:00: 00 11-02 04:59 :00 Yes [id number] 30mg Take 10 mL by mouth in the morning for 5 days. [facility] methylPREDN ISolone (MEDROL, JOSEPH,) 4 mg tablets 10-27 00:00: 00 10-27 00:00 :00 No [id number] Take by mouth SEE-INSTRU CTIONS. follow package directions [facility] erythromyci n 5 mg/gram (0.5 %) ophthalmic ointment 2022-05 2-10 00:00: 00 Yes [id number] 002727 .5[in_u s] Place 0.5 Inches in right eye 4 (four) times daily. [facility] bromphenira mine-pseudo ephedrine-D M (BROMFED DM) 2-30-10 mg/5 mL syrup 15 00:00: 00 Yes [id number] 10mL Take 10 mL by mouth 4 (four) times daily as needed for Congestion /Allergies . [facility] cefdinir 250 mg/5 mL suspension 09-14 00:00: 00 09-25 04:59 :00 No [id number] 300mg Take 6 mL by mouth in the morning for 10 days. [facility] bromphenira mine-pseudo ephedrine-D M (BROMFED DM) 2-30-10 mg/5 mL syrup 09-14 00:00: 00 09-14 00:00 :00 No [id number] 5mL Take 5 mL by mouth 4 (four) times daily as needed for Congestion /Allergies . [facility] ciprofloxac in HCl ophthalmic ointment 2020-05 00:00: 00 03-11 05:59 :00 No [id number] 9102 .5[in_u s] Place 0.5 Inches in left eye 3 (three) times daily for 7 days. [facility] tretinoin microsphere s (RETIN-A MICRO PUMP) 0.04 % gel 11-29 00:00: 00 Yes [id number] Apply to affected area(s) every evening. Apply 2 pumps to face QHS as tolerated. [facility] clindamycin -benzoyl peroxide (BENZACLIN PUMP) gel 11-29 00:00: 00 Yes [id number] Apply to affected area(s) every morning. Apply 1/2 pump to face QAM. [facility] Vital Signs Vital Name Observation Time Observation Value Comments S ource Systolic blood pressure 2023-10-29 00:00:00 135 mm[Hg] [facility] Diastolic blood pressure 2023-10-29 00:00:00 82 mm[Hg] [facility] Heart rate 2023-10-29 00:00:00 84 /min [facility] Body temperature 2023-10-29 00:00:00 38.39 Jeanna [facility] Respiratory rate 2023-10-29 00:00:00 17 /min [facility] Body weight 2023-10-29 00:00:00 82.555 kg [facility] BMI 2023-10-29 00:00:00 29.38 kg/m2 [facility] Oxygen saturation in Arterial blood by Pulse oximetry 2023-10-29 00:00:00 97 /min [facility] Systolic blood pressure 2023-04-11 23:42:00 138 mm[Hg] [facility] Diastolic blood pressure 2023-04-11 23:42:00 77 mm[Hg] [facility] Heart rate 2023-04-11 23:41:00 82 /min [facility] Body temperature 2023-04-11 23:41:00 36.44 Jeanna [facility] Respiratory rate 2023-04-11 23:41:00 17 /min [facility] Body height 2023-04-11 23:41:00 167.6 cm [facility] Body weight 2023-04-11 23:41:00 85.276 kg [facility] BMI 2023-04-11 23:41:00 30.34 kg/m2 [facility] Oxygen saturation in Arterial blood by Pulse oximetry 2023-04-11 23:41:00 100 /min [facility] Systolic blood pressure 2022-09-14 20:51:00 143 mm[Hg] [facility] Diastolic blood pressure 2022-09-14 20:51:00 95 mm[Hg] [facility] Heart rate 2022-09-14 20:49:00 72 /min [facility] Body temperature 2022-09-14 20:49:00 36.78 Jeanna [facility] Respiratory rate 2022-09-14 20:49:00 18 /min [facility] Body height 2022-09-14 20:49:00 167.6 cm [facility] Body weight 2022-09-14 20:49:00 76.794 kg [facility] BMI 2022-09-14 20:49:00 27.33 kg/m2 [facility] Oxygen saturation in Arterial blood by Pulse oximetry 2022-09-14 20:49:00 96 /min [facility] Diastolic blood pressure 2021-03-03 23:16:00 83 mm[Hg] [facility] Systolic blood pressure 2021-03-03 23:16:00 125 mm[Hg] [facility] Heart rate 2021-03-03 23:13:00 71 /min [facility] Body temperature 2021-03-03 23:13:00 36.67 Jeanna [facility] Respiratory rate 2021-03-03 23:13:00 18 /min [facility] Body height 2021-03-03 23:13:00 167.6 cm [facility] Body weight 2021-03-03 23:13:00 72.576 kg [facility] BMI 2021-03-03 23:13:00 25.82 kg/m2 [facility] Oxygen saturation in Arterial blood by Pulse oximetry 2021-03-03 23:13:00 99 /min [facility] Procedures Procedure Date / Time Performed Performing Clinicia n Source POCT MOLECULAR STREP 2023-10-28 23:59:00 Unknown, Atte borising [facility] POCT SARS-COV-2 ANTIGEN (BINAX NOW) 2023-10-28 23:58:00 Ioana Cherry [facility] ASSIGNMENT OF BENEFITS 2022-09-14 20:40:04 Docto r Unassigned, [place] [facility] ASSIGNMENT OF BENEFITS 2021-03-03 23:05:05 Docto r Unassigned, [place] [facility] Encounters Start Date/Time End Date/Time Encounter Type Admission Type Attending Clinicians Care Facility Care Department Encounter ID Source 2023-12-08 00:00:00 2023-12-09 09:01:12 [facility] 1..840.114 350.1.13.10 4.2.7.2.686 [id number] [facility] 2023-12-09 09:00:00 2023-12-09 09:00:00 Outpatient R BAY CH[facility]AS [facility] [id number] [facility] 2023-12-01 15:12:15 2023-12-01 23:59:00 Outpatient R BAY CHICAS [facility] [id number] [facility] 2023-12-01 15:12:15 2023-12-01 23:59:00 Hospital Encounter Bay Chicas [facility] 1..840.114 350.1.13.10 4.2.7.2.686 [id number] [facility] 2023-11-29 00:00:00 2023-11-29 14:59:40 Telephone Bay Chicas [facility] 1..840.114 350.1.13.10 4.2.7.2.686 [id number] [facility] 2023-10-28 18:40:00 2023-10-28 19:17:24 Outpatient R IOANA CHERRY [facility] [id number] [facility] 2023-10-28 18:40:00 2023-10-28 19:17:24 Urgent Care Ioana Cherry [facility] 1..840.114 350.1.13.10 4.2.7.2.686 [id number] [facility] 2023-04-11 17:40:00 2023-04-11 18:19:20 Outpatient R ASHUTOSH KULKARNI [facility] [id number] [facility] 2023-04-11 17:40:00 2023-04-11 18:00:00 Urgent Care Ashutosh Kulkarni Unknown, Attending [facility] 1.2840.114 350.1.13.10 4.2.7.2.686 [id number] [facility] 2023-04-11 00:00:00 2023-04-11 00:00:00 Telephone Ashutosh Kulkarni [facility] 1.84.114 350.1.13.10 4.2.7.2.686 [id number] [facility] 2022-09-18 00:00:00 2022-09-18 00:00:00 Refill Ashutosh Kulkarn[facility] 1.84.114 350.1.13.10 4.2.7.2.686 [id number] [facility] 2022-09-14 15:40:00 2022-09-14 15:56:50 Outpatient R ASHUTOSH KULKARNI [facility] [id number] [facility] 2022-09-14 15:40:00 2022-09-14 15:56:50 Urgent Care Ashutosh Kulkarni Unknown, Attending [facility] 1.284.114 350.1.13.10 4.2.7.2.686 [id number] [facility] 2022-09-14 00:00:00 2022-09-14 00:00:00 Orders Only Doctor Unassigned, [place] [facility] 1.284.114 350.1.13.10 4.2.7.2.686 [id number] [facility] 2021-03-03 18:07:09 2021-03-03 18:23:56 [facility] 1.2.840.114 350.1.13.10 4.2.7.2.686 [id number] [facility] 2021-03-03 18:00:00 2021-03-03 18:23:56 Outpatient R [facility]Y [facility] [id number] [facility] 2021-03-03 00:00:00 2021-03-03 00:00:00 Orders Only Doctor Unassigned, [place] [facility] [id number] 350.1.13.10 4.2.7.2.686 [id number] [facility] Results Test Description Test Time Test Comments Results Result Co mments Source [id number] 00:06:38* Test Item Value Reference Range Interpretation Comme nts POCT Molecular Strep (test c ode = 24040-2) Negative Negative Lab Interpretation (test cod e = [id number]) Normal [facility] Notes Date/Time Note Provider Source 2023-12-08 17:02:53 Amber Pittman is a 33 year old male Is calling to speak with someone in the office, he had an MRI scheduled for 12/08 and states it was cancelled because the insurance company needs a peer to peer review from Dr Chicas and they won't pay for it. Please advise [phone] Ken Lim [facility] 2023-11-29 14:59:06 Called pt notified no sooner melody available only for earlier same day he decided to keep original melody Johnna Bai [facility] 2023-11-29 13:58:22 Leidy may have availability sooner , please check and schedule patient Thanks Princess Ramos MA [facility] 2023-11-29 12:04:28 Patient removing his boot yesterday around 7pm and felt a pull in the outer right knee. [place] the outer knee popped. Patient is scheduled for 11/30. Requesting to be seen sooner or advise on care. Glenna Durant [facility]
[2023-12-12] MEDS ORDERED: KETOROLAC 30 MG/ML INJ ONE (17:03)
--- NOTE | 2023-12-12 17:08 | ER ---
Nurse's Notes [facility] Name: Tulio Pittman Age: 33 yrs Sex: Male : 1990 Arrival Date: 12/12/2023 Time: 16:15 Bed 10 Private MD: Diagnosis: Pain in right knee Presentation: 12/11 16:44 Chief complaint: Patient states: Right knee pain. Had surgery on it 16 years ago, 2 nj1 weeks ago he injured it removing his boot. Saw ortho 2 days after, xrays done and MRI scheduled. Today, he was kneeling down and when he got up pain got worse and now it is different. Has MRI scheduled for the . Coronavirus screen: Vaccine status: Patient reports being unvaccinated. Ebola Screen: Patient denies travel to an Ebola-affected area in the 21 days before illness onset. Initial Sepsis Screen: Does the patient meet any 2 criteria? No. Patient's initial sepsis screen is negative. Does the patient have a suspected source of infection? No. Patient's initial sepsis screen is negative. Risk Assessment: Do you want to hurt yourself or someone else? Patient reports no desire to harm self or others. Onset of symptoms was November 28, 2023. 16:44 Method Of Arrival: Ambulatory [facility] 16:44 Acuity: FACUNDO 3 nj1 Triage Assessment: 17:22 General: Appears in no apparent distress. uncomfortable, Behavior is calm, cooperative. kj2 Pain: Complains of pain in right knee Pain currently is 5 out of 10 on a pain scale. Cardiovascular: Patient's skin is warm and dry. Injury Description: knee pain. 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 - Infectious Disease History:: Denies. - Social history:: Smoking status: Patient denies any tobacco usage or history of. - Family history:: not pertinent. - Hospitalizations: : No recent hospitalization is reported. Screenin:[address] [facility] ED Fall Risk Assessment (Adult) History of falling in the last 3 months, kj2 including since admission No falls in past 3 months (0 pts) Confusion or Disorientation No (0 pts) Intoxicated or Sedated No (0 pts) Impaired Gait No (0 pts) Mobility Assist Device Used No (0 pt) Altered Elimination No (0 pt) Score/Fall Risk Level 0 - 2 = Low Risk. Abuse screen: Denies threats or abuse. Denies injuries from another. Nutritional screening: No deficits noted. Tuberculosis screening: No symptoms or risk factors identified. Assessment: 17:19 General: Appears in no apparent distress. uncomfortable, Behavior is calm, cooperative. kj2 Pain: Complains of pain in right knee Pain currently is 5 out of 10 on a pain scale. Neuro: Level of Consciousness is awake, alert, obeys commands, Oriented to person, place, time. Cardiovascular: Patient's skin is warm and dry. Respiratory: Airway is patent Respiratory effort is unlabored. Musculoskeletal: Reports pain in right knee. Vital Signs: 16:44 BP 164 / 99; Pulse 72; Resp 70; Temp 98.2; Pulse Ox 99% ; Weight 81.65 kg; Height 5 ft. nj1 6 in. ; Pain 4/10; 17:20 BP 136 / 90; Pulse 67; Resp 18; Temp 98; Pulse Ox 99% on R/A; kj2 16:44 Body Mass Index 29.05 (81.65 kg, 167.64 cm) nj1 16:44 Pain Scale: Adult nj1 ED Course: 16:17 Patient arrived in ED. ra3 16:23 Kurt Spencer MD is Attending Physician. rn 16:47 Triage completed. nj1 16:48 Arm band placed on right wrist. nj1 16:58 Hannah Cohen, NABIL is Primary Nurse. kj2 17:17 Patient has correct armband on for positive identification. Bed in low position. kj2 Provided Education on: call light, fall precautions. 17:24 No provider procedures requiring assistance completed. kj2 17:24 Patient did not have IV access during this emergency room visit. kj2 Administered Medications: 17:05 Drug: Ketorolac IM 30 mg IM once Route: IM; Site: left deltoid; kj2 17:21 Follow up: Response: No adverse reaction; Pain is decreased kj2 Medication: 17:17 VIS not applicable for this client. kj2 Outcome: 17:07 Discharge ordered by . rn 17:23 Condition: stable kj2 17:23 Discharge instructions given to patient, Instructed on discharge instructions, follow up and referral plans. Demonstrated understanding of instructions, follow-up care, 17:23 Discharged to home ambulatory, kj2 17:29 Patient left the ED. kj2 Signatures: Kurt Spencer MD MD rn Jaco, Norma, RN RN nj1 Libby Weems ra3 Hannah Cohen RN RN kj2 Corrections: (The following items were deleted from the chart) 16:48 16:47 PMHx: COVID positive; nj1 nj1
--- NOTE | 2023-12-12 17:08 | EDPHYS ---
Physician Documentation [facility] Name: Tulio Pittman Age: 33 yrs Sex: Male : 1990 Arrival Date: 12/12/2023 Time: 16:15 Bed 10 Private MD: MARLYN Physician Kurt Spencer HPI: 12/11 17:04 This 33 yrs old Male presents to ER via Ambulatory with complaints of Knee Injury. rn 17:04 The patient presents with pain. The complaints affect the right knee. Onset: The rn symptoms/episode began/occurred 2 week(s) ago. Modifying factors: The symptoms are alleviated by remaining still, the symptoms are aggravated by weight bearing, bending knee. Severity of symptoms: At their worst the symptoms were moderate, in the emergency department the symptoms have improved. The patient has experienced similar episodes in the past. Patient reports previous meniscal injury and surgery as a teenager, 2 weeks ago was lifting his leg while he was taking off his boot and felt a pop. Has had intermittent right knee pain since then. Had trouble with insurance covering an MRI and pain did not improve so came in for MRI of the knee. Patient states the knee actually feels better currently and is able to move knee and workout as well as walk okay but has some times where his knee catches and hurts. Actually states was able to reschedule his MRI and that insurance is going to cover it and will be in 5 days.. 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 - Infectious Disease History:: Denies. - Social history:: Smoking status: Patient denies any tobacco usage or history of. - Family history:: not pertinent. - Hospitalizations: : No recent hospitalization is reported. ROS: 17:04 Constitutional: Negative for fever, chills, and weight loss, MS/Extremity: Positive for rn right knee pain Exam: 17:04 Constitutional: This is a well developed, well nourished patient who is awake, alert, rn and in no acute distress. MS/ Extremity: Neurovascular intact. Full, normal range of motion. Equal circumference. No effusion. No open wounds. No focal bony tenderness. Vital Signs: 16:44 BP 164 / 99; Pulse 72; Resp 70; Temp 98.2; Pulse Ox 99% ; Weight 81.65 kg; Height 5 ft. nj1 6 in. ; Pain 4/10; 17:20 BP 136 / 90; Pulse 67; Resp 18; Temp 98; Pulse Ox 99% on R/A; kj2 16:44 Body Mass Index 29.05 (81.65 kg, 167.64 cm) nj1 16:44 Pain Scale: Adult nj1 MDM: 16:23 Patient medically screened. rn 17:04 Differential diagnosis: tendonitis, Arthritis, loose fragments in joint, mild effusion, rn strain, sprain. Data reviewed: vital signs, nurses notes, and as a result, I will discharge patient. Test considered but Not performed: MRI: MRI knee considered but unavailable.. Counseling: I had a detailed discussion with the patient and/or guardian regarding the historical points, exam findings, and any diagnostic results supporting the discharge/admit diagnosis, the need for outpatient follow up, to return to the emergency department if symptoms worsen or persist or if there are any questions or concerns that arise at home. Special discussion: I discussed with the patient/guardian in detail that at this point there is no indication for admission to the hospital. It is understood, however, that if the symptoms persist or worsen the patient needs to return immediately for re-evaluation. Further emergent ED testing is not indicated at this point in time. I discussed with the patient/guardian in detail the need to arrange with the PCP or specialist further outpatient testing, MRI, Based on the history and exam findings, there is no indication for further emergent testing or inpatient evaluation. I discussed with the patient/guardian the need to see the orthopedic surgeon for further evaluation of the symptoms. ED course: No indication for emergent MRI at this time. Very minimal pain upon examination. Has MRI scheduled for 5 days from now. Patient understands this after discussion as we do not have MRI available at this time.. Administered Medications: 17:05 Drug: Ketorolac IM 30 mg IM once Route: IM; Site: left deltoid; kj2 17:21 Follow up: Response: No adverse reaction; Pain is decreased kj2 Disposition Summary: 12/12/23 17:07 Discharge Ordered Notes: Location: Home rn Problem: new rn Symptoms: have improved rn Condition: Stable rn Diagnosis - Pain in right knee rn Followup: rn - With: Private Physician - When: As needed - Reason: Recheck today's complaints, Re-evaluation by your physician Discharge Instructions: - Discharge Summary Sheet rn - Joint Pain rn - Acute Knee Pain, Adult rn Forms: - Medication Reconciliation Form rn - Antibiotic architect intern - Prescription Opioid Use rn - Patient Portal Instructions rn - Leadership Thank You Letter rn Signatures: Kurt Spencer MD MD rn Jaco, Norma, RN RN nj1 Hannah Cohen, RN RN kj2 Corrections: (The following items were deleted from the chart) 16:48 16:47 PMHx: COVID positive; nj1 nj1
[2023-12-12 17:54] VITALS: BP 136/90; TEMP 98; O2SAT 99
== END 2023-12-12 17:29 | disposition home or self-care (01) ==
LOC: ER 16:15
DX: M25.561 Pain in right knee (principal)
CPT/HCPCS: 96372; 99284